=== PATIENT | female | born 1990 | race Caucasian/White ===

== ENCOUNTER 2017-10-20 22:11 | Emergency (ER) | payer OTHER ==
[2017-10-20 22:37] VITALS: BP 103/74; PULSE 70; TEMP 97.9; BMI 25.8
--- NOTE | 2017-10-21 | PDOC ---
History of Present Illness - General History Source: Patient Exam Limitations: No Limitations - History of Present Illness Initial Comments: 10/21/17 00:18 The patient is a 27 year old female who is approximately 9 weeks who presents to the ED complaining of 1 day of vaginal bleeding. She states she noticed a small amount of bleeding this morning. She states she made an appointment with her OBGYN later in the week. Tonight, she was moving when she noticed a large amount of bleeding with large clots, prompting her to come to the ED fore evaluation. Also notes associated suprapubic cramping. No fever or chills. No nausea, vomiting, or diarrhea. LMP 07/17/17 OBGYN is in [facility] <Ivelisse Olson - Last Filed: 10/21/17 00:25> <Emilia Moore - Last Filed: 10/21/17 02:15> - General Chief Complaint: Vaginal Bleeding Stated Complaint: VAGINAL BLEEDING (9 WKS ) Time Seen by Provider: 10/20/17 23:57 Past History <Ivelisse Olson - Last Filed: 10/21/17 00:25> - Past Medical History COPD: No Other medical history: Pt denies - Suicide/Smoking/Psychosocial Hx Smoking History: Never smoked Have you smoked in the past 12 months: No Information on smoking cessation initiated: No Hx Alcohol Use: No Drug/Substance Use Hx: No Substance Use Type: None <Emilia Moore - Last Filed: 10/21/17 02:15> - Past Medical History Allergies/Adverse Reactions: Allergies Allergy/AdvReac Type Severity Reaction Status Date / Time No Known Allergies Allergy Verified 10/20/17 22:34 Review of Systems - Review of Systems Able to Perform ROS?: Yes Comments:: 10/21/17 00:29 GENERAL/CONSTITUTIONAL: No fever or chills. No weakness. HEAD, EYES, EARS, NOSE AND THROAT: No change in vision. No ear pain or discharge. No sore throat. CARDIOVASCULAR: No chest pain or shortness of breath. RESPIRATORY: No cough, wheezing, or hemoptysis. GASTROINTESTINAL: No nausea, vomiting, diarrhea or constipation. GENITOURINARY: +Vaginal bleeding, mild suprapubic cramping. No dysuria, frequency, or change in urination. MUSCULOSKELETAL: No joint or muscle swelling or pain. No neck or back pain. SKIN: No rash NEUROLOGIC: No headache, vertigo, loss of consciousness, or change in strength/ sensation. ENDOCRINE: No increased thirst. No abnormal weight change. HEMATOLOGIC/LYMPHATIC: No anemia, easy bleeding, or history of blood clots. ALLERGIC/IMMUNOLOGIC: No hives or skin allergy. <Ivleisse Olson - Last Filed: 10/21/17 00:25> *Physical Exam - Vital Signs Last Vital Signs Temp Pulse Resp BP Pulse Ox 97.9 F 70 18 103/74 99 10/20/17 22:35 10/20/17 22:35 10/20/17 22:35 10/20/17 22:35 10/20/17 22:35 - Physical Exam Comments: 10/21/17 00:29 GENERAL: Awake, alert, and fully oriented, in no acute distress HEAD: No signs of trauma EYES: PERRLA, EOMI, sclera anicteric, conjunctiva clear ENT: Auricles normal inspection, nares patent. Moist mucosa NECK: Normal ROM, supple, no JVD, or masses LUNGS: Breath sounds equal, clear to auscultation bilaterally. No wheezes, and no crackles HEART: Regular rate and rhythm, normal S1 and S2, no murmurs, rubs or gallops ABDOMEN: +Minimal suprapubic tenderness to palpation. Soft, normoactive bowel sounds. No guarding, no rebound. No masses EXTREMITIES: Normal range of motion, no edema. No clubbing or cyanosis. No cords, erythema, or tenderness NEUROLOGICAL: Alert and oriented x 3. Moves all extremities. Face is symmetric. SKIN: Warm, Dry, normal turgor, no rashes or lesions noted. <Ivelisse Olson - Last Filed: 10/21/17 00:25> - Vital Signs Last Vital Signs Temp Pulse Resp BP Pulse Ox 97.9 F 70 18 103/74 99 10/20/17 22:35 10/20/17 22:35 10/20/17 22:35 10/20/17 22:35 10/20/17 22:35 <Emilia Moore - Last Filed: 10/21/17 02:15> ED Treatment Course - LABORATORY CBC & Chemistry Diagram: 10/21/17 00:23 <Emilia Moore - Last Filed: 10/21/17 02:15> Medical Decision Making - Medical Decision Making 10/21/17 02:06 27-year-old female who's last menstrual period was mid July 2017. Presents because of vaginal bleeding. She states she is and today noticed some blood. Beta-hCG is greater than 119,000. CBC unremarkable, no significant anemia Pelvic ultrasound, transabdominal There is a gestational yolk sac and pole. Heart motion 161 bpm [place] rump length measurement equals 9 weeks 3 days. Left ovary 2.6 x 2.3 x 1.9 cm complex ovarian cyst, most likely due to a corpus luteal cyst Left ovary measures 4.7 x 2.9 x 2.3 cm Right ovary measures 3 x 1.8 x 2.2 cm IMPRESSION single living intrauterine fetus, estimated gestational age 9 weeks and 3 days. <Emilia Moore - Last Filed: 10/21/17 02:15> *DC/Admit/Observation/Transfer - Attestations Scribe Attestion: 10/21/17 00:30 Documentation prepared by Ivelisse Olson, acting as faculty i on call medical assistant for Emilia Moore MD. <Ivelisse Olson - Last Filed: 10/21/17 00:25> <Emilia Moore - Last Filed: 10/21/17 02:15> Diagnosis at time of Disposition: Threatened - Discharge Dispostion Disposition: HOME Condition at time of disposition: Stable - Patient Instructions Printed Discharge Instructions: DI for Threatened Additional Instructions: 1. please follow up with your collection manager 2.continue your vitamins
[2017-10-21 00:45] LABS: BASO % 0.3 % (0-2.0); EOS % 0.9 % (0-4.5); HEMATOCRIT 36.7 % (32.4-45.2); HEMOGLOBIN 12.6 GM/dL (10.7-15.3); LYMPH % 17.1 % (8-40); MCH 29.5 pg (25.7-33.7); MCHC 34.3 g/dl (32.0-36.0); MEAN CELL VOLUME 86.1 fl (80-96); MEAN PLT VOLUME 8.1 fl (7.5-11.1); MONO % 5.8 % (3.8-10.2); NEUT % 75.9 % (42.8-82.8); PLATELET COUNT 259 K/MM3 (134-434); RBC 4.27 M/mm3 (3.60-5.2); RDW 13.6 % (11.6-15.6); WHITE BLOOD COUNT 11.5 K/mm3 (4.0-10.0)
== END 2017-10-21 02:21 | disposition home or self-care (01) ==
LOC: JER 22:11
DX: O26.891 Other specified pregnancy related conditions, first trimester (principal); O20.0 Threatened abortion; O34.81 Maternal care for other abnormalities of pelvic organs, first trimester; N83.12 Corpus luteum cyst of left ovary; Z3A.09 9 weeks gestation of pregnancy
CPT/HCPCS: 36415; 76815-TC; 84702; 85025; 86850; 86900; 86901; 99281-25; 99283-25